=== PATIENT | female | born 1985 | race Caucasian/White ===

== ENCOUNTER 2016-07-28 20:09 | Emergency (ER) | payer MEDICAID ==
[~2016-07-28] VITALS: Ht 167.6 cm; Wt 86.2 kg
[~2016-07-28 20:09] MED LIST: BACTRIM DS 8001 TAB PO; DELTASONE50 MG PO; IBU600 MG; MECLIZINE25 MG; MONISTAT VG; MOTRIN800 MG PO; NORCO 325 MG-51 TAB PO; PRENATAL VITAMI1 T10 PO; TYLENOL325 M2 PO; ZITHROMAX500 M1 PO; ZOFRAN4 M1 PO; tylenol
[2016-07-28 20:24] VITALS: BP 112/70
--- NOTE | 2016-07-28 20:59 | NUR ---
Patient ambulated to bed 08.
--- NOTE | 2016-07-28 21:05 | NUR ---
30 Y/O F W/C/O CHEST PAIN AND SOB X 2 DAYS WHICH IS TRIGGER BY MENTAL OR PHYSICAL STRESS. DENIES ANY MEDICAL HISTORY. NO S/S OF DISTRESS, ON CARDIA MONITOR, VSS, NO S/S DISTRESS NOTED AT THIS MOMENT. ER MADEA AWARE.
--- NOTE | 2016-07-28 21:06 | NUR ---
Leann carcamo in ED - 07/28/16 at 2133 by MESHA XRAY at bedside.
--- NOTE | 2016-07-28 21:33 | NUR ---
Dr. Phelps evaluating patient at bedside.
[2016-07-28] MEDS ORDERED: KETOROLAC 30 MG/ML VIAL IM ONE (21:50)
[2016-07-28] MEDS ORDERED: ACETAMINOPHEN/CODEINE 300/30MG 1 TAB PO ONE (21:50)
[2016-07-28 22:19] VITALS: BP 125/64
--- NOTE | 2016-07-28 22:19 | NUR ---
Patient discharged with v/s stable. Written and verbal after care instructions given and explained. Patient alert, oriented and verbalized understanding of instructions. Ambulatory with steady gait. All questions addressed prior to discharge. ID band removed. Patient advised to follow up with PMD IN 2 DAYS OR RETURN TO ER IF CONDITION WORSENS. Rx of NAPROSYN given. Patient educated on indication of medication including possible reaction and side effects. Opportunity to ask questions provided and answered.
== END 2016-07-28 22:19 | disposition home or self-care (01) ==
LOC: MED 20:09
DX: J02.9 Acute pharyngitis, unspecified (principal); R07.89 Other chest pain
CPT/HCPCS: 70360; 71010; 93005; 96372; 99284; J1885

== ENCOUNTER 2016-09-15 10:35 | Emergency (ER) | payer MEDICAID ==
[~2016-09-15] VITALS: Ht 165.1 cm; Wt 83.9 kg
[~2016-09-15 10:35] MED LIST changes: +ACET-2869 PO; -BACTRIM DS 8001 TAB PO; -DELTASONE50 MG PO; -IBU600 MG; -MECLIZINE25 MG; -MONISTAT VG; -MOTRIN800 MG PO; -NORCO 325 MG-51 TAB PO; +ONDA4TAB PO; -PRENATAL VITAMI1 T10 PO; -TYLENOL325 M2 PO; -ZITHROMAX500 M1 PO; -ZOFRAN4 M1 PO; -tylenol
[2016-09-15 10:40] VITALS: BP 130/67
--- NOTE | 2016-09-15 10:45 | NUR ---
PT AMBULATE TO RESTROOM.
--- NOTE | 2016-09-15 10:49 | NUR ---
Patient ambulated to bed 4. RN evaluating patient at bedside.
--- NOTE | 2016-09-15 10:52 | NUR ---
Dr. Parrish evaluating patient at bedside.
--- NOTE | 2016-09-15 10:55 | NUR ---
PATIENT PRESENTS TO ED W/ C/O GENERALIZED BONE PAIN WITH GUM PAIN;LOWER AND UPPER GUMS HAS WHITE PATCHES-HX IMPLANT TO L ARM.DENIES N/V/D; SKIN IS PINK/WARM/DRY; AAOX4 WITH EVEN AND STEADY GAIT; LUNGS CLEAR BL; HR EVEN AND REGULAR; PT DENIES ANY FEVER, CP, SOB, OR COUGH AT THIS TIME; PATIENT STATES PAIN OF 6/10 AT THIS TIME; PATIENT POSITIONED FOR COMFORT; HOB ELEVATED; BEDRAILS UP X2; BED DOWN. ER MD MADE AWARE OF PT STATUS.
[2016-09-15] MEDS ORDERED: KETOROLAC 60 MG/2 ML VIAL IM ONE (11:05)
[2016-09-15 11:28] VITALS: BP 111/65
== END 2016-09-15 11:27 | disposition home or self-care (01) ==
LOC: MED 10:35
DX: B00.2 Herpesviral gingivostomatitis and pharyngotonsillitis (principal)
CPT/HCPCS: 81002; 81025; 96372; 99283; J1885

== ENCOUNTER 2016-09-21 16:25 | Emergency (ER) | payer MEDICAID ==
[~2016-09-21] VITALS: Ht 165.1 cm; Wt 84.4 kg
[~2016-09-21 16:25] MED LIST changes: -ACET-2869 PO; +BACTRIM DS 8001 TAB PO; +DELTASONE50 MG PO; +IBU600 MG; +MECLIZINE25 MG; +MONISTAT VG; +MOTRIN800 MG PO; +NORCO 325 MG-51 TAB PO; -ONDA4TAB PO; +PRENATAL VITAMI1 T10 PO; +TYLENOL325 M2 PO; +ZITHROMAX500 M1 PO; +ZOFRAN4 M1 PO; +tylenol
[2016-09-21 16:38] VITALS: BP 120/72
--- NOTE | 2016-09-21 16:47 | NUR ---
PT AMBULATED TO ER BED 07.
[2016-09-21] MEDS ORDERED: NACL 0.9% 1,000 ML IV ONE (16:50)
--- NOTE | 2016-09-21 17:00 | NUR ---
31F BIB FAMILY C/O LEFT UPPER CHEST PAIN, STABBING, NON-RADIATING, 5/10 X 3 DAYS; SINUS TACHYCARDIA NOTED ON MONITOR AT THIS TIME; PT A&OX4, PERRLA, C/O NON-PRODUCTIVE COUGH X 2 DAYS; BL LUNG SOUNDS CLEAR, RR EVEN/UNLABORED, SKIN IS WARM/DRY/INTACT AT THIS TIME; PT DENIES N/V/D AT THIS TIME; STEADY GAIT; PT PLACED ON MONITOR, RESTING IN BED W/ HOB ELEVATED AND IN LOWEST POSITION; POSITIONED FOR COMFORT; ER MD MADE AWARE OF STATUS. WILL CONTINUE TO MONITOR.
--- NOTE | 2016-09-21 17:07 | NUR ---
XRAY AT BEDSIDE.
--- NOTE | 2016-09-21 19:09 | NUR ---
Pt report given to CODY SANDERS. Transfer of care at this time.
--- NOTE | 2016-09-21 19:40 | NUR ---
Patient discharged with v/s stable. Written and verbal after care instructions given and explained. Patient alert, oriented and verbalized understanding of instructions. Ambulatory with steady gait. All questions addressed prior to discharge. ID band removed. Patient advised to follow up with PMD. Rx of ZITHROMAX 250MG AND PHENERGAN DM given. Patient educated on indication of medication including possible reaction and side effects. Opportunity to ask questions provided and answered.
--- NOTE | 2016-09-21 19:40 | NUR ---
IV removed, catheter intact and site benign. Applied folded 4x4 gauze and tape to stop bleeding.
[2016-09-21 19:41] VITALS: BP 117/82
== END 2016-09-21 19:40 | disposition home or self-care (01) ==
LOC: MED 16:25
DX: J18.1 Lobar pneumonia, unspecified organism (principal); J02.9 Acute pharyngitis, unspecified; Z90.49 Acquired absence of other specified parts of digestive tract
CPT/HCPCS: 36415; 71010; 80053; 80305; 81002; 81025; 84439; 84443; 84484; 85025; 93005; 96360; 96361; 99285; J7030

== ENCOUNTER 2017-01-13 19:16 | Emergency (ER) | payer SELFPAY ==
[~2017-01-13 19:16] MED LIST changes: +ACET-2869 PO; -BACTRIM DS 8001 TAB PO; -DELTASONE50 MG PO; -IBU600 MG; -MECLIZINE25 MG; -MONISTAT VG; -MOTRIN800 MG PO; -NORCO 325 MG-51 TAB PO; +ONDA4TAB PO; -PRENATAL VITAMI1 T10 PO; -TYLENOL325 M2 PO; -ZITHROMAX500 M1 PO; -ZOFRAN4 M1 PO; -tylenol
--- NOTE | 2017-01-13 19:46 | NUR ---
PATIENT LEFT WITHOUT BEING SEEN BY DR. SANTOS. NO FURTHER CARE PROVIDED FOR PATIENT.
== END 2017-01-13 19:46 | disposition left against medical advice (07) ==
LOC: MED 19:16
DX: R10.9 Unspecified abdominal pain (principal); Z53.21 Procedure and treatment not carried out due to patient leaving prior to being seen by health care provider

== ENCOUNTER 2017-03-25 00:13 | Emergency (ER) | payer MEDICAID ==
[~2017-03-25] VITALS: Ht 170.2 cm; Wt 81.6 kg
[2017-03-25 00:21] VITALS: BP 131/74
[2017-03-25] MEDS ORDERED: IBUP-2213 PO (00:33)
[2017-03-25] MEDS ORDERED: SM GAS RELIEF PO (00:33)
[2017-03-25] MEDS ORDERED: DOCU-299 PO (00:33)
[2017-03-25] MEDS ORDERED: TYL3 PO (00:33)
--- NOTE | 2017-03-25 00:53 | NUR ---
PT AMB TO ER BED 10 BY [facility].
--- NOTE | 2017-03-25 00:58 | NUR ---
31/F biba from home for evaluation of RUQ pain radiating up to right shoulder starting 1 hour prior to arrival. Pt had gallbladder removed from [facility] yesterday. LBM 03/20/17. AOX4, wallisian speaking, clear speech. Abd soft, tender with palpation, hypoactive bowel sounds x4 quadrants. Facial grimacing, guarding abdomen. IV established by paramedics to left AC 20 gauge.
[2017-03-25] MEDS ORDERED: NACL 0.9% 1,000 ML IV ONE (01:45)
[2017-03-25] MEDS ORDERED: MORPHINE SULFATE 4 MG/ML SYR IVP ONE (01:45)
[2017-03-25] MEDS ORDERED: ONDANSETRON 4 MG/2 ML VIAL IVP ONE (01:45)
--- NOTE | 2017-03-25 01:56 | NUR ---
Consent for CT with contrast signed by patient.
[2017-03-25 02:01] LABS: HEMATOCRIT 42.7 % (36-48); HEMOGLOBIN 14.1 g/dL (12.0-16.0); MEAN CORPUSCULAR HEMOGLOBIN 30 pg (27-31); MEAN CORPUSCULAR HGB CONC 33 g/dL (33-37); MEAN CORPUSCULAR VOLUME 92 fL (80-94); PLATELET COUNT (AUTO) 131 K/uL (140-450); RED BLOOD CELL COUNT(AUTO) 4.66 MIL/uL (4.20-5.40); RED CELL DISTRIBUTION WIDTH 11.8 % (11.6-13.7); WHITE BLOOD COUNT (AUTO) 10.6 K/uL (4.8-10.8)
[2017-03-25 02:11] LABS: ANION GAP 9.8 (8-16); CARBON DIOXIDE 28.3 mmol/L (21-32); CREATININE 0.7 mg/dL (0.6-1.3); POTASSIUM 3.1 mmol/L (3.5-5.1)
[2017-03-25 02:18] LABS: ALBUMIN 3.8 g/dL (3.4-5.0); LYMPHOCYTES % (MANUAL) 17 % (20-46); MONOCYTES % (MANUAL) 4 % (5-12)
--- NOTE | 2017-03-25 02:29 | NUR ---
PT TAKEN TO CT VIA RDELANEY.
[2017-03-25 04:23] LABS: APPEARANCE,URINE CLEAR (CLEAR); BILIRUBIN,URINE NEGATIVE (NEGATIVE); BLOOD, URINE NEGATIVE (NEGATIVE); COLOR,URINE YELLOW (YELLOW); LEUKOCYTE ESTERASE ,URINE TRACE (NEGATIVE); NITRITE, URINE NEGATIVE (NEGATIVE); PH,URINE 6.5 (5.0-9.0); UGLUCOSE NEGATIVE (NEGATIVE)
[2017-03-25] MEDS ORDERED: HYDROmorphone 1 MG/ML AMP IVP ONE (04:30)
--- NOTE | 2017-03-25 04:45 | NUR ---
Ultrasound at bedside.
[2017-03-25 04:59] LABS: RBC,URINE 0-5 (RARE) /HPF (0-5)
--- NOTE | 2017-03-25 06:15 | NUR ---
PT IN BED RESTING, WILL CONTINUE TO MONITOR.
[2017-03-25 07:21] VITALS: BP 112/67
--- NOTE | 2017-03-25 07:21 | NUR ---
Patient discharged with v/s stable. Written and verbal after care instructions given and explained. Patient verbalized understanding. Ambulatory with steady gait. All questions addressed prior to discharge. Advised to follow up with PMD.
== END 2017-03-25 07:21 | disposition home or self-care (01) ==
LOC: MED 00:13
DX: R10.84 Generalized abdominal pain (principal); M25.511 Pain in right shoulder; M54.2 Cervicalgia; Z90.49 Acquired absence of other specified parts of digestive tract; Z79.899 Other long term (current) drug therapy
CPT/HCPCS: 36415; 74177; 76856; 80053; 81001; 81025; 83690; 85025; 87086; 87186; 96361; 96374; 96375; 99285; J1170; J2270; J2405; J7030; Q0092; Q9967

== ENCOUNTER 2018-10-05 16:56 | Emergency (ER) | payer MEDICAID ==
[~2018-10-05] VITALS: Ht 167.6 cm; Wt 105.2 kg
[~2018-10-05 16:56] MED LIST changes: -ACET-2869 PO; +DOCU-299 PO; +HYDR-5122 PO; +IBUP-2213 PO; +SM GAS RELIEF PO; +TYL3 PO
[2018-10-05 17:00] VITALS: BP 101/50
--- NOTE | 2018-10-05 17:20 | NUR ---
BIB SELF C/O RADIATE TO LEFT UPPER BACK CHEST PAIN AND COUGH WITH WHITE SPUTUM X 1 WEEK. SWEATING FOR 3 DAYS. CHEST PAIN IS PRESSURING WHILE COUGHING. DENIES N/V/D; SKIN IS PINK/WARM/DRY; AAOX4 WITH EVEN AND STEADY GAIT; LUNGS CLEAR BL; HR EVEN AND REGULAR; PT DENIES ANY FEVER OR SOB AT THIS TIME; PATIENT STATES PAIN OF 5/10 AT THIS TIME; VSS; PATIENT POSITIONED FOR COMFORT; HOB ELEVATED; BEDRAILS UP X2; BED DOWN. ER MD MADE AWARE OF PT STATUS.
[2018-10-05] MEDS ORDERED: NACL 0.9% 1,500 ML IV SCH (17:21)
--- NOTE | 2018-10-05 17:21 | NUR ---
Patient ambulated to bed 7. RN evaluating patient at bedside.
[2018-10-05] MEDS ORDERED: KETOROLAC 30 MG/ML VIAL IVP ONE (17:25)
[2018-10-05] MEDS ORDERED: LEVOFLOXACIN 750 MG/D5W PREMIX 150 ML IV ONE (17:25)
[2018-10-05] MEDS ORDERED: methylPREDNISolone SS 125 MG/2 ML VIAL IVP ONE (17:25)
[2018-10-05 17:54] LABS: BASOPHILS % (AUTO) 0.4 % (0.0-2.0); EOSINOPHILS # (AUTO) 0.1 K/uL (0-0.4); EOSINOPHILS % (AUTO) 1.2 % (0.0-4.0); HEMOGLOBIN 14.3 g/dL (12.0-16.0); LYMPHOCYTES # (AUTO) 1.3 K/uL (2.5-16.5); LYMPHOCYTES % (AUTO) 15.7 % (20.5-51.1); MEAN CORPUSCULAR HEMOGLOBIN 31 pg (27-31); MEAN CORPUSCULAR HGB CONC 34 g/dL (33-37); MEAN CORPUSCULAR VOLUME 91.6 fL (80-94); MONOCYTES # (AUTO) 0.5 K/uL (0.8-1.0); MONOCYTES % (AUTO) 6.3 % (1.7-9.3); NEUTROPHILS # (AUTO) 6.4 K/uL (1.8-7.7); NEUTROPHILS % (AUTO) 76.4 % (42.2-75.2); PLATELET COUNT (AUTO) 209 K/uL (140-450); RED BLOOD CELL COUNT(AUTO) 4.58 MIL/uL (4.20-5.40); RED CELL DISTRIBUTION WIDTH 13.1 % (11.6-13.7); WHITE BLOOD COUNT (AUTO) 8.4 K/uL (4.8-10.8)
[2018-10-05 18:10] LABS: ANION GAP 11.8 (8-16); CARBON DIOXIDE 26.1 mmol/L (21-32); CREATININE 0.6 mg/dL (0.6-1.3); POTASSIUM 3.9 mmol/L (3.5-5.1); PROTHROMBIN TIME 9.3 secs (10.8-13.4)
[2018-10-05 18:15] LABS: ALBUMIN 3.6 g/dL (3.4-5.0); TOTAL BILIRUBIN 0.4 mg/dL (0.0-1.0)
[2018-10-05 19:19] VITALS: BP 109/54
--- NOTE | 2018-10-05 19:19 | NUR ---
Patient discharged with v/s stable. Written and verbal after care instructions given and explained. Patient alert, oriented and verbalized understanding of instructions. Ambulatory with steady gait. All questions addressed prior to discharge. ID band removed. Patient advised to follow up with PMD. Rx of Promethazine, Tramadol, Levaquin, and Prednisone given. Patient educated on indication of medication including possible reaction and side effects. Opportunity to ask questions provided and answered. pt's coughing and chest pain have been improved.
[2018-10-05 19:24] LABS: APPEARANCE,URINE CLEAR (CLEAR); BILIRUBIN,URINE NEGATIVE (NEGATIVE); BLOOD, URINE 3+ (NEGATIVE); COLOR,URINE YELLOW (YELLOW); LEUKOCYTE ESTERASE ,URINE NEGATIVE (NEGATIVE); NITRITE, URINE NEGATIVE (NEGATIVE); UGLUCOSE NEGATIVE (NEGATIVE)
[2018-10-05 19:28] LABS: RBC,URINE 50-80 /HPF (0-5); WBC,URINE 0-5 /HPF (0-5)
[2018-10-05 19:38] LABS: BARBITURATE, URINE NEG. ng/ml (NEG <=200); BENZODIAZEPINE, URINE NEG. ng/mL (NEG <=200); CANNABINOID, URINE NEG. ng/mL (NEG <=50); COCAINE, URINE NEG. ng/mL (NEG <=300); OPIATE, URINE NEG. ng/mL (NEG <=2000); PHENCYCLIDINE SCREEN,URINE NEG. ng/mL (NEG <=25)
== END 2018-10-05 19:19 | disposition home or self-care (01) ==
LOC: MED 16:56
DX: J40 Bronchitis, not specified as acute or chronic (principal); R07.81 Pleurodynia; Z79.1 Long term (current) use of non-steroidal anti-inflammatories (NSAID); Z79.891 Long term (current) use of opiate analgesic; Z79.899 Other long term (current) drug therapy
CPT/HCPCS: 36415; 36600; 71045; 80053; 80305; 81001; 81025; 82803; 83735; 83880; 84484; 85025; 85379; 85610; 87040; 87086; 93005; 96365; 96375; 99284; J1885; J1956; J2930; J7030; Q0092

== ENCOUNTER 2020-07-05 20:11 | Emergency (ER) | payer MEDICAID, SELFPAY ==
[~2020-07-05] VITALS: Ht 167.6 cm; Wt 90.3 kg
[~2020-07-05 20:11] MED LIST changes: +ASPI-1205 PO; -DOCU-299 PO; -SM GAS RELIEF PO; -TYL3 PO
[2020-07-05 20:20] VITALS: BP 117/71
--- NOTE | 2020-07-05 20:20 | NUR ---
to bed ambulatory
[2020-07-05] MEDS ORDERED: KETOROLAC 60 MG/2 ML VIAL IM ONE (20:30)
--- NOTE | 2020-07-05 20:34 | NUR ---
EKG BEING PERFORMD AT BEDSIDE.
--- NOTE | 2020-07-05 20:49 | NUR ---
ERMD AT BEDSIDE EVALUATING PATIENT.
[2020-07-05] MEDS ORDERED: IBUP-2213 PO (20:56)
[2020-07-05 21:45] VITALS: BP 122/88
== END 2020-07-05 21:45 | disposition home or self-care (01) ==
LOC: MED 20:11
DX: R07.89 Other chest pain (principal); M79.602 Pain in left arm; R06.02 Shortness of breath; Z90.49 Acquired absence of other specified parts of digestive tract
CPT/HCPCS: 93005; 96372; 99283; J1885

== ENCOUNTER 2021-09-26 12:37 | Emergency (ER) | payer MEDICAID ==
[~2021-09-26] VITALS: Ht 165.1 cm; Wt 81.4 kg
[2021-09-26 12:46] VITALS: BP 116/84
[2021-09-26] MEDS ORDERED: diazePAM 5 MG TAB PO ONE (13:10)
[2021-09-26] MEDS ORDERED: KETOROLAC 30 MG/ML VIAL IM ONE (13:10)
--- NOTE | 2021-09-26 13:23 | NUR ---
XRAY AT BEDSIDE
--- NOTE | 2021-09-26 13:30 | NUR ---
36YO FEMALE PT C/O DULL CHEST PAIN. PT STATES PAIN HAS BEEN INCONSISTENT X3 DAYS. PT STATES MILD HEADACHES AND NAUSEA. PT STATES HAVING ANXIETY. PT ALSO STATES SOB , O2 CURRENTLY AT [address] ROOM AIR. PT DENIES V/D. PT HAS TAKEN IBUPROFEN AT HOME TO RELIEF HEADACHE , NO RELIEF. PT RESPIRATIONS EVEN AND UNLABORED . ALL VITALS WITHIN NORMAL RANGE. ALL PT NEEDS MET AT THIS TIME. PT ON MONITOR AND WITHIN VIEW. YOBANY AVELARX
[2021-09-26] MEDS ORDERED: NAPR-54 PO (14:14)
[2021-09-26] MEDS ORDERED: DIAZ5TAB6 PO (14:14)
--- NOTE | 2021-09-26 14:48 | NUR ---
Patient discharged with v/s stable. Written and verbal after care instructions FOR CHEST WALL PAIN given and explained. Patient alert, oriented and verbalized understanding of instructions. Ambulatory with steady gait. All questions addressed prior to discharge. ID band removed. Patient advised to follow up with PMD. Rx of DIAZEPAM AND NAPROXEN given. Opportunity to ask questions provided and answered.
--- NOTE | 2021-09-26 14:49 | NUR ---
Chart checked and completed. The patient's care was reviewed and supervised by Florinda Carlton RN.
[2021-09-26 14:50] VITALS: BP 97/58
== END 2021-09-26 14:48 | disposition home or self-care (01) ==
LOC: MED 12:37
DX: R07.89 Other chest pain (principal); Z98.890 Other specified postprocedural states
CPT/HCPCS: 71045; 81002; 81025; 93005; 96372; 99283; J1885; Q0092

== ENCOUNTER 2021-12-17 11:45 | Emergency (ER) | payer MEDICAID ==
[~2021-12-17] VITALS: Ht 175.3 cm; Wt 79.4 kg
[~2021-12-17 11:45] MED LIST changes: +DIAZ5TAB6 PO; +NAPR-54 PO
[2021-12-17 11:54] VITALS: BP 111/69
--- NOTE | 2021-12-17 11:58 | NUR ---
PT AMB TO ER BED 4
--- NOTE | 2021-12-17 12:20 | NUR ---
C/O ARM PAIN,HEADACHE/CHEST PAIN X AM HX ANXIETY PAIN 06/09
[2021-12-17 13:28] LABS: BASOPHILS % (AUTO) 0.5 % (0.0-2.0); HEMATOCRIT 40.9 % (36-48); LYMPHOCYTES # (AUTO) 1.5 K/uL (2.5-16.5); LYMPHOCYTES % (AUTO) 35.8 % (20.5-51.1); MEAN CORPUSCULAR HEMOGLOBIN 31 pg (27-31); MEAN CORPUSCULAR HGB CONC 34 g/dL (33-37); MEAN CORPUSCULAR VOLUME 90.4 fL (80-94); MONOCYTES # (AUTO) 0.3 K/uL (0.8-1.0); MONOCYTES % (AUTO) 6.1 % (1.7-9.3); NEUTROPHILS # (AUTO) 2.3 K/uL (1.8-7.7); NEUTROPHILS % (AUTO) 56.6 % (42.2-75.2); PLATELET COUNT (AUTO) 165 K/uL (140-450); RED BLOOD CELL COUNT(AUTO) 4.53 MIL/uL (4.20-5.40); RED CELL DISTRIBUTION WIDTH 13.1 % (11.6-13.7); WHITE BLOOD COUNT (AUTO) 4.1 K/uL (4.8-10.8)
[2021-12-17 13:45] LABS: ALBUMIN 4.1 g/dL (3.4-5.0); ASPARTATE AMINOTRANSFERASE 15 U/L (15-37); CARBON DIOXIDE 29.6 mmol/L (21-32); CHLORIDE 107 mmol/L (98-107); CREATININE 0.5 mg/dL (0.6-1.3); GFR ARICAN-AMERICAN 179 mL/min (>90); GLUCOSE 89 mg/dL (74-106); POTASSIUM 3.6 mmol/L (3.5-5.1); SODIUM SERUM 142 mmol/L (136-145); TOTAL BILIRUBIN 0.9 mg/dL (0.0-1.0); UREA NITROGEN, BLOOD 15 mg/dL (7-18)
[2021-12-17] MEDS ORDERED: NAPR-1704 PO (13:55)
[2021-12-17 14:33] VITALS: BP 118/73
== END 2021-12-17 14:33 | disposition home or self-care (01) ==
LOC: MED 11:45
DX: M62.838 Other muscle spasm (principal)
CPT/HCPCS: 36415; 71045; 80053; 84484; 85025; 93005; 99285; Q0092

== ENCOUNTER 2022-10-18 14:50 | Emergency (ER) | payer MEDICAID ==
[~2022-10-18] VITALS: Ht 162.6 cm; Wt 83.9 kg
[~2022-10-18 14:50] MED LIST changes: +NAPR-1704 PO
[2022-10-18 15:15] VITALS: BP 112/79; PULSE 82; RESP 18; TEMP 98; O2SAT 99
[2022-10-18 16:50] LABS: BASOPHILS % (AUTO) 0.6 % (0.0-2.0); EOSINOPHILS # (AUTO) 0.1 K/uL (0-0.4); EOSINOPHILS % (AUTO) 1.2 % (0.0-4.0); HEMATOCRIT 40.7 % (36-48); LYMPHOCYTES # (AUTO) 1.6 K/uL (2.5-16.5); LYMPHOCYTES % (AUTO) 25.6 % (20.5-51.1); MEAN CORPUSCULAR HEMOGLOBIN 31 pg (27-31); MEAN CORPUSCULAR HGB CONC 34 g/dL (33-37); MEAN CORPUSCULAR VOLUME 89.6 fL (80-94); MONOCYTES # (AUTO) 0.4 K/uL (0.8-1.0); MONOCYTES % (AUTO) 6.5 % (1.7-9.3); NEUTROPHILS # (AUTO) 4.1 K/uL (1.8-7.7); NEUTROPHILS % (AUTO) 66.1 % (42.2-75.2); PLATELET COUNT (AUTO) 174 K/uL (140-450); RED BLOOD CELL COUNT(AUTO) 4.55 MIL/uL (4.20-5.40); RED CELL DISTRIBUTION WIDTH 13.5 % (11.6-13.7); WHITE BLOOD COUNT (AUTO) 6.2 K/uL (4.8-10.8)
[2022-10-18 17:27] LABS: ALBUMIN 3.7 g/dL (3.4-5.0); ANION GAP 13.3 (8-16); CARBON DIOXIDE 26.2 mmol/L (21-32); CREATININE 0.5 mg/dL (0.6-1.3); POTASSIUM 4.5 mmol/L (3.5-5.1); TOTAL BILIRUBIN 0.6 mg/dL (0.0-1.0)
[2022-10-18] MEDS ORDERED: IBUP-2213 PO (18:05)
[2022-10-18 18:11] VITALS: BP 125/80; PULSE 74; RESP 17; TEMP 97; O2SAT 98
== END 2022-10-18 18:14 | disposition home or self-care (01) ==
LOC: MED 14:50
DX: M79.18 Myalgia, other site (principal); Z79.1 Long term (current) use of non-steroidal anti-inflammatories (NSAID); Z79.899 Other long term (current) drug therapy; Z79.82 Long term (current) use of aspirin
CPT/HCPCS: 36415; 80053; 85025; 99283